=== PATIENT | male | born 1990 | race Caucasian/White ===

== ENCOUNTER 2018-12-12 13:39 | Inpatient (IN) | payer MEDICAID ==
[~2018-12-12] VITALS: Ht 167.6 cm; Wt 63.7 kg
[~2018-12-12 13:39] MED LIST: METH750T93 PO; NAPR-688 PO
[2018-12-12] MEDS ORDERED: SODIUM CHLORIDE 0.9% 1L BAG IV* STA (15:25)
[2018-12-12] MEDS ORDERED: CLINDAMYCIN 600 MG/D5W (PMX) 50 ML IVPB STA (15:25)
[2018-12-12] MEDS ORDERED: LIDOCAINE 1%/EPI (MDV) 50 ML INJ INJ ONE (15:30)
[2018-12-12] MEDS ORDERED: ACETAMINOPHEN 500 MG TAB PO STA (15:48)
[2018-12-12] MEDS ORDERED: KETOROLAC 30 MG INJ IV STA (16:03)
[2018-12-12] MEDS ORDERED: ONDANSETRON 4 MG INJ IV STA (16:03)
[2018-12-12] MEDS ORDERED: morphine 2 MG INJ IV STA (16:03)
--- NOTE | 2018-12-12 16:29 | ERD ---
ER Documentation Chief Complaint Chief Complaint RIGHT AC SWELLING WITH LARGE LUMP, POSS ABCESS, IV DRUG HPI 28-year-old male who is homeless and an IV drug abuser presents to the ED with abscess and swelling with erythema to his right arm that he is noted for the past 3-4 days. Patient admits to having chills. Admits to crystal meth use today. Patient denies taking any other medications. ROS All systems reviewed and are negative except as per history of present illness. Medications Home Meds Active Scripts Methocarbamol* (Robaxin*) 750 Mg Tablet, 750 MG PO Q6H PRN for MUSCLE SPASMS, #20 TAB Prov:AMANDO MÉNDEZ DO 07/12/18 Naproxen* (Naproxen*) 500 Mg Tablet, 500 MG PO BID PRN for PAIN, #20 TAB Prov:GWENDOLYN MÉNDEZSHUA DO 07/12/18 Allergies Allergies: Coded Allergies: No Known Drug Allergy (Verified Allergy, Unknown, 01/01/09) PMhx/Soc History of Surgery: No Anesthesia Reaction: No Hx Neurological Disorder: No Hx Respiratory Disorders: Yes (ASTHMA) Hx Cardiac Disorders: No Hx Psychiatric Problems: No Hx Miscellaneous Medical Probl: No Hx Alcohol Use: Yes Hx Substance Use: Yes (Meth) Hx Tobacco Use: Yes Physical Exam Vitals Vital Signs Date Temp Pulse Resp B/P (MAP) Pulse Ox O2 O2 Flow FiO2 Time Delivery Rate 12/12/18 100.0 114 20 129/74 100 14:42 (92) Physical Exam Const: No acute distress Head: Atraumatic Eyes: Normal Conjunctiva ENT: Normal External Ears, Nose and Mouth. Neck: Full range of motion. No meningismus. Resp: Clear to auscultation bilaterally Cardio: Regular rate and rhythm, no murmurs Abd: Soft, non tender, non distended. Normal bowel sounds Skin: Abscess noted to the right forearm with extensive cellulitis extending to the right hand and upper arm Back: No midline or flank tenderness Ext: No cyanosis, or edema Neur: Awake and alert Psych: Normal Mood and Affect Result Diagram: 12/12/18 1550 12/12/18 1550 Results 24 hrs Laboratory Tests Test 12/12/18 15:50 12/12/18 15:59 White Blood Count 18.9 10^3/ul Red Blood Count 5.31 10^6/ul Hemoglobin 13.5 g/dl Hematocrit 42.7 % Mean Corpuscular Volume 80.4 fl Mean Corpuscular Hemoglobin 25.4 pg Mean Corpuscular Hemoglobin Concent 31.6 g/dl Red Cell Distribution Width 15.0 % Platelet Count 494 10^3/UL Mean Platelet Volume 8.5 fl Immature Granulocytes % 0.800 % Neutrophils % 76.0 % Lymphocytes % 15.3 % Monocytes % 6.5 % Eosinophils % 1.0 % Basophils % 0.4 % Nucleated Red Blood Cells % 0.0 /100WBC Immature Granulocytes # 0.160 10^3/ul Neutrophils # 14.4 10^3/ul Lymphocytes # 2.9 10^3/ul Monocytes # 1.2 10^3/ul Eosinophils # 0.2 10^3/ul Basophils # 0.1 10^3/ul Nucleated Red Blood Cells # 0.0 10^3/ul Prothrombin Time 12.5 Sec Prothrombin Time Ratio 1.0 INR International Normalized Ratio 0.92 Activated Partial Thromboplast Time 32.3 Sec Sodium Level 138 mmol/L Potassium Level 3.8 mmol/L Chloride Level 97 mmol/L Carbon Dioxide Level 32 mmol/L Anion Gap 9 Blood Urea Nitrogen 10 mg/dl Creatinine 0.65 mg/dl Est Glomerular Filtrat Rate mL/min > 60 mL/min Glucose Level 123 mg/dl Calcium Level 9.3 mg/dl Total Bilirubin 0.1 mg/dl Direct Bilirubin 0.00 mg/dl Indirect Bilirubin 0.1 mg/dl Aspartate Amino Transf (AST/SGOT) 357 IU/L Alanine Aminotransferase (ALT/SGPT) 748 IU/L Alkaline Phosphatase 239 IU/L Total Protein 8.1 g/dl Albumin 4.1 g/dl Globulin 4.00 g/dl Albumin/Globulin Ratio 1.02 POC Venous Lactate 1.9 mmol/L Current Medications Medications Dose Sig/Chio Start Time Status Last (Trade) Ordered Route PRN Stop Time Admin Dose Reason Admin Sodium 1,890 ml BOLUS OVER 2 12/12/18 DC 12/12/18 Chloride HOURS STAT 15:25 16:25 (NS) IV* 12/12/18 15:30 Clindamycin 50 ml @ 50 ONCE STAT 12/12/18 DC 12/12/18 HCl/ mls/hr IVPB 15:25 16:23 Dextrose 12/12/18 16:24 Lidocaine/ 50 ml ONCE ONCE 12/12/18 DC Epinephrine INJ 15:30 (Xylocaine 12/12/18 15:31 1%/ Epi (Mdv)) 1,000 mg ONCE STAT 12/12/18 DC 12/12/18 Acetaminophen PO 15:48 16:24 (Tylenol 12/12/18 15:49 Tab) Ketorolac 30 mg ONCE STAT 12/12/18 DC 12/12/18 Tromethamine IV 16:03 16:23 (Toradol) 12/12/18 16:05 Morphine 2 mg ONCE STAT 12/12/18 DC 12/12/18 Sulfate IV 16:03 16:24 (morphine) 12/12/18 16:05 Ondansetron 4 mg ONCE STAT 12/12/18 DC 12/12/18 HCl (Zofran IV 16:03 16:23 Inj) 12/12/18 16:05 Lidocaine/ 1 ml ONCE INJ 12/12/18 DC Epinephrine 16:30 (Xylocaine 12/12/18 16:31 1%/ Epi (Pf)) Procedures/MDM 28-year-old male who is homeless presents to the ED with abscess and cellulitis of the right arm due to IV drug abuse. It is appropriate for patient to be admitted for IV antibiotics. Patient is afebrile and aseptic, stable to be tra nsferred to med/surg. I have discussed this case with my supervising physician who admitted to I&D performed, procedure below. IV access was established, patient was given about 2 L of normal saline fluids. Blood cultures obtained, he was started on clindamycin. Lab work was drawn, he had leukocytosis 18.9 and elevated transaminases ALT/AST 357/748. He will be admitted for further evaluation and management. PROCEDURE NOTE: Verbal consent was obtained Wound was cleansed with Betadine 20 cc Lidocaine 1% with epinephrine was used as a local anesthetic #11 blade scalpel was used for a single 0.5cm incision. Copious drainage of purulence occurred Wound packed with iodoform gauze strips Procedure tolerated without complications Wound dressed Departure Diagnosis: Primary Impression: Cellulitis Additional Impressions: Abscess Elevated transaminase level IV drug abuse Condition: Serious SHELLEY DUARTE PA-C Dec 12, 2018 16:29
[2018-12-12] MEDS ORDERED: LIDOCAINE 1%/EPI 30 ML INJ INJ SCH (16:30)
--- NOTE | 2018-12-12 17:43 | EN ---
Date/Time of Note Date/Time of Note DATE: 12/12/18 TIME: 17:38 ER Progress Note The patient was evaluated by the PA. He was seen and examine by me independently. Left upper extremity is with eryth ematous/edematous/fluctuant area The patient is 28-year-old male, presenting with acute right upper extremity pain and swelling and redness for the last 5 days after using IV drug, consistent with acute cellulitis/abscess He will be admitted for internal medicine antibiotic I discussed the findings with the patient. I discussed the patient with the hospitalist Dr Nevarez at 5:30 pm . who was made aware of the lab, the treatment, the patient condition. The patient is admitted to [facility] Disclaimer: Inadvertent spelling and grammatical errors are likely due to EHR/dictation software use and do not reflect on the overall quality of patient care. Also, please note that the electronic time recorded on this note does not necessarily reflect the actual time of the patient encounter. LENORE WEAVER MD Dec 12, 2018 17:43
--- NOTE | 2018-12-12 18:43 | HP ---
Date/Time of Note Date/Time of Note DATE: 12/12/18 TIME: 18:39 Assessment/Plan VTE Prophylaxis SCD contraindicated: low risk/ambulating Pharmacological prophylaxis: LMWH Lines/Catheters IV Catheter Type (from Nrsg): Saline Lock Assessment/Plan Hospital Course CC -rt arm pain [place] -28-year-old homeless gentleman, presently a poor historian. denies injury. awake, alert, oriented. 'tired, going through things... just want to sleep. lost the person who raised me last week here w ovarian ca.' homeless, lives in a tent. PMH -none PSH -none SH denies FH no known cad, stroke. cancer? ROS neuro: No loss of speech or vision or fainting cor cor: No chest pain no dyspnea no edema chest: Cough no dyspnea no fever abd: No pain nausea vomiting gu: No hematuria dysuria or lithiasis ms: No gait dysfunction falls. Positive rash infection right upper extremity: endo: No history of diabetes dyslipidemia or thyroid dysfunction psy: No significant agitation anxiety depression. Grief? hem: No hematemesis melena hematuria con: No fever rigors possible chills PE no pallor/ droop reg s1s2 no mrg ctab bs+ nt nd; no r r g no edema; rue- erythema, tender, warmth A/P 1- RUE Cellulitis, stable, continue Vanco Bactrim on discharge 2- Ftt; homeless: May need sniff 3- abn lfts 4possible hepatitis C Result Diagram: 12/12/18 1550 12/12/18 1550 Results 24hrs Laboratory Tests Test 12/12/18 15:50 12/12/18 15:59 White Blood Count 18.9 H Red Blood Count 5.31 Hemoglobin 13.5 L Hematocrit 42.7 Mean Corpuscular Volume 80.4 L Mean Corpuscular Hemoglobin 25.4 L Mean Corpuscular Hemoglobin Concent 31.6 L Red Cell Distribution Width 15.0 H Platelet Count 494 H Mean Platelet Volume 8.5 Immature Granulocytes % 0.800 H Neutrophils % 76.0 Lymphocytes % 15.3 Monocytes % 6.5 Eosinophils % 1.0 Basophils % 0.4 Nucleated Red Blood Cells % 0.0 Immature Granulocytes # 0.160 H Neutrophils # 14.4 H Lymphocytes # 2.9 Monocytes # 1.2 H Eosinophils # 0.2 Basophils # 0.1 Nucleated Red Blood Cells # 0.0 Prothrombin Time 12.5 Prothrombin Time Ratio 1.0 INR International Normalized Ratio 0.92 Activated Partial Thromboplast Time 32.3 Sodium Level 138 Potassium Level 3.8 Chloride Level 97 Carbon Dioxide Level 32 H Anion Gap 9 Blood Urea Nitrogen 10 Creatinine 0.65 Est Glomerular Filtrat Rate mL/min > 60 Glucose Level 123 Calcium Level 9.3 Total Bilirubin 0.1 L Direct Bilirubin 0.00 Indirect Bilirubin 0.1 Aspartate Amino Transf (AST/SGOT) 357 H Alanine Aminotransferase (ALT/SGPT) 748 H Alkaline Phosphatase 239 H Total Protein 8.1 Albumin 4.1 Globulin 4.00 H Albumin/Globulin Ratio 1.02 POC Venous Lactate 1.9 HPI/ROS Admit Date/Time Admit Date/Time PMH/Family/Social Past Medical History Medications Current Medications Sodium Chloride 1,000 ml @ 100 mls/hr Q10H IV ; Start 12/12/18 at 18:35; Status UNV IV Flush (NS 3 ml) 3 ml PER PROTOCOL IV ; Start 12/12/18 at 19:00; Status UNV Ondansetron HCl (Zofran Inj) 4 mg Q6H PRN IV NAUSEA/VOMITING; Start 12/12/18 at 19:00; Status UNV Acetaminophen (Tylenol Tab) 650 mg Q6H PRN PO .PAIN 1-3 OR TEMP; Start 12/12/18 at 19:00; Status UNV Oxycodone/ Acetaminophen (Percocet (5/ 325)) 1 tab Q6H PRN PO .MOD PAIN 4-6; Start 12/12/18 at 19:00; Status UNV Morphine Sulfate (morphine) 2 mg Q4H PRN IV .SEVERE PAIN 7-10; Start 12/12/18 at 19:00; Status UNV Docusate Sodium (Colace) 100 mg Q12H PRN PO .CONSTIPATION; Start 12/12/18 at 19:00; Status UNV Magnesium Hydroxide (Milk Of Mag) 30 ml DAILY PRN PO .CONSTIPATION; Start 12/12/18 at 19:00; Status UNV Bisacodyl (Dulcolax) 5 mg DAILY PRN PO .CONSTIPATION; Start 12/12/18 at 19:00; Status UNV Zolpidem Tartrate (Ambien) 5 mg QHS PRN PO .INSOMNIA; Start 12/12/18 at 19:00; Status UNV Famotidine (Pepcid) 20 mg Q12 PO ; Start 12/12/18 at 21:00; Status UNV Enoxaparin Sodium (Lovenox) 40 mg DAILY SC ; Start 12/13/18 at 09:00; Status UNV Coded Allergies: No Known Drug Allergy (Verified Allergy, Unknown, 12/12/18) Social History Smoking Status: Current every day smoker Exam/Review of Systems Vital Signs Vitals Vital Signs Date Temp Pulse Resp B/P (MAP) Pulse Ox O2 O2 Flow FiO2 Time Delivery Rate 12/12/18 100.0 114 20 129/74 100 14:42 (92) MINA CLAY MD Dec 12, 2018 18:43
[2018-12-12] MEDS ORDERED: NACL 0.9% 3 ML SYG IV SCH (19:00)
[2018-12-12] MEDS ORDERED: BISACODYL (EC) 5 MG TAB PO PRN (19:00)
[2018-12-12] MEDS ORDERED: MAGNESIUM HYDROXIDE 30ML CUP PO PRN (19:00)
[2018-12-12] MEDS ORDERED: morphine 2 MG INJ IV PRN (19:00)
[2018-12-12] MEDS ORDERED: ONDANSETRON 4 MG INJ IV PRN (19:00)
[2018-12-12] MEDS ORDERED: DOCUSATE SODIUM 100 MG CAP PO PRN (19:00)
[2018-12-12] MEDS ORDERED: ACETAMINOPHEN 325 MG TAB PO PRN (19:00)
[2018-12-12 21:32] VITALS: BP 111/53; PULSE 96; RESP 20
[2018-12-12 21:33] VITALS: Ht 167.6 cm; Wt 63.7 kg
[2018-12-12] MEDS ORDERED: CLINDAMYCIN 900 MG/D5W (PMX) 50 ML IVPB SCH (22:00)
[2018-12-12] MEDS: FAMOTIDINE 20 MG TAB PO SCH (22:36)
[2018-12-12] MEDS: SOD CHLORIDE 0.9% 1,000 ML IV SCH (22:36)
[2018-12-13 02:06] VITALS: BP 92/51; PULSE 92; RESP 18
[2018-12-13] MEDS: SOD CHLORIDE 0.9% 1,000 ML IV SCH ×2 (04:35→10:10)
[2018-12-13 07:20] VITALS: BP 109/57; PULSE 6; RESP 18
[2018-12-13] MEDS: FAMOTIDINE 20 MG TAB PO SCH ×2 (08:20→20:35)
[2018-12-13] MEDS: ENOXAPARIN 40 MG/0.4 ML SYG SC SCH (08:21)
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
[2018-12-13 14:08] VITALS: BP 121/55; PULSE 74; RESP 18
[2018-12-13] MEDS: BUPROPION 100 MG TAB PO SCH (14:38)
[2018-12-13] MEDS: CLINDAMYCIN 900 MG/D5W (PMX) 50 ML IVPB SCH ×2 (18:48→23:05)
[2018-12-13 20:00] VITALS: BP 131/53; PULSE 95; RESP 18
[2018-12-13] MEDS: LACTOBACILLUS RHAMNOSUS CAP PO SCH (20:35)
[2018-12-14 02:10] VITALS: BP 125/57; PULSE 77; RESP 18
[2018-12-14] MEDS: CLINDAMYCIN 900 MG/D5W (PMX) 50 ML IVPB SCH ×3 (05:33→21:48)
[2018-12-14] MEDS: SOD CHLORIDE 0.9% 1,000 ML IV SCH (06:40)
[2018-12-14 07:56] VITALS: BP 105/66; PULSE 65; RESP 18
[2018-12-14] MEDS: BUPROPION 100 MG TAB PO SCH (08:23)
[2018-12-14] MEDS: LACTOBACILLUS RHAMNOSUS CAP PO SCH ×2 (08:23→21:48)
[2018-12-14] MEDS: FAMOTIDINE 20 MG TAB PO SCH ×2 (08:23→21:48)
[2018-12-14] MEDS: ENOXAPARIN 40 MG/0.4 ML SYG SC SCH (08:24)
[2018-12-14 14:00] VITALS: BP 107/54; PULSE 73; RESP 16
--- NOTE | 2018-12-14 14:20 | CONS ---
DATE OF ADMISSION: 12/12/2018 DATE OF CONSULTATION: 12/13/2018 TYPE OF CONSULTATION: Infectious disease. REASON FOR CONSULTATION: Antibiotic management. HISTORY OF PRESENT ILLNESS: Nikhil Quinones is a 28-year-old male who presented to the [facility] on 12/12/2018 with possible IV drug abuse and possible abscess. The patient is homeless, IV drug a buser, presents to the ER with abscess and swelling with erythema of the right arm that he noted for the past 3 or 4 days. He had chills. He admits to using crystal meth even today, the day of admissi on. PAST MEDICAL HISTORY: Positive for asthma. FAMILY HISTORY: Noncontributory. SOCIAL HISTORY: He drinks, he smokes, he abuses drugs, especially methamphetamines. ANCILLARY LABORATORY DATA: On admission, his temperature was 100. White count 18.9, H and H of 13.5 and 42.7, platelet count 495,000. BUN and creatinine 10/0.65. He had noted white count of 18.9 wit h 76% neutrophils, 15% lymphocytes. The patient was started on clindamycin. Patient was admitted to Dr. Nevarez and I and D was performe d. The wound was cleaned, copious drainage of purulence occurred, wound packed. Procedure tolerated without complications. Blood cultures so far are negative. Wound culture was not done. Patient cu rrently on clindamycin. ALLERGIES: None to penicillin, sulfa or foods. MEDICATIONS: Per chart. REVIEW OF SYSTEMS: As per HPI. PHYSICAL EXAMINATION GENERAL: The patient is in no acute distress. VITAL SIGNS: T-max 100. SKIN: Without generalized rash. HEENT: Within normal limits. NECK: Supple. LYMPH NODES: None palpable. CHEST: Decreased breath sounds at the bases. HEART: Without murmur or gallop. ABDOMEN: Soft, nontender, without organosplenomegaly or masses. EXTREMITIES: Patient has his right forearm wrapped, status post incision and drainage. RECTAL AND GENITAL: Deferred. NEUROLOGIC: No focal neurological abnormality. IMPRESSION AND PLAN: The patient is an IV drug abuser. He had an abscess which was drained. It wou ld be nice to know what he is growing, but it is probably Staph aureus, methicillin-resistant staph. He was started on clindamycin and has no known drug allergy, so he could have been started on vancom ycin as well. We do not have any cultures at this point. Patient was seen by psychiatry or at least consented to tele medicine, for depression, anxiety. We will continue to observe him. I will dicta te my findings to Dr. Tapia. Dictated By: CLARA VIRGEN MD, JD/NTS Conf#: [id number] DID#: [id number] CC: ABHIJEET NEVAREZ MD;*EndCC*
--- NOTE | 2018-12-14 15:34 | PN ---
Date/Time of Note Date/Time of Note DATE: 12/14/18 TIME: 15:33 Assessment/Plan VTE Prophylaxis Risk score (from Ns)>0 risk: 1 SCD applied (from Ns): No SCD contraindicated: low risk/ambulating Pharmacological prophylaxis: LMWH Lines/Catheters IV Catheter Type (from Nrs): Saline Lock Urinary Cath still in place: No Assessment/Plan Hospital Course A/P 1- RUE Cellulitis, stable, cont Clinda; consider Bactrim on discharge. ortho eval too 2- Ftt; homeless: May need snf 3- abn lfts 4possible hepatitis C 5- blind S: no distress O: vss PE no pallor/ droop reg s1s2 no mrg ctab bs+ nt nd; no r r g no edema; rue- erythema, tender, warmth Result Diagram: 12/14/1842812/14/18428 Results 24hrs Laboratory Tests Test 12/13/18 23:15 12/14/18 04:29 Urine Opiates Screen Negative Urine Barbiturates Negative Urine Amphetamines Screen Positive Urine Benzodiazepines Screen Negative Urine Cocaine Screen Negative Urine Cannabinoids Negative White Blood Count 9.0 # Red Blood Count 4.73 Hemoglobin 12.3 L Hematocrit 38.3 L Mean Corpuscular Volume 81.0 L Mean Corpuscular Hemoglobin 26.0 L Mean Corpuscular Hemoglobin Concent 32.1 Red Cell Distribution Width 15.3 H Platelet Count 494 H Mean Platelet Volume 8.8 Immature Granulocytes % 1.000 H Neutrophils % 50.4 Lymphocytes % 33.0 Monocytes % 10.6 Eosinophils % 4.0 Basophils % 1.0 Nucleated Red Blood Cells % 0.0 Immature Granulocytes # 0.090 H Neutrophils # 4.5 Lymphocytes # 3.0 H Monocytes # 1.0 H Eosinophils # 0.4 Basophils # 0.1 Nucleated Red Blood Cells # 0.0 Sodium Level 140 Potassium Level 4.0 Chloride Level 106 Carbon Dioxide Level 29 Anion Gap 5 Blood Urea Nitrogen 13 Creatinine 0.71 Est Glomerular Filtrat Rate mL/min > 60 Glucose Level 98 Calcium Level 8.8 Exam/Review of Systems Exam Vitals Vital Signs Date Temp Pulse Resp B/P (MAP) Pulse Ox O2 O2 Flow FiO2 Time Delivery Rate 12/14/18 98.5 73 16 107/54 99 14:00 (71) 12/13/18 Room Air 14:08 Intake and Output 12/13/18 12/13/18 12/14/18 1414:59 22:59 06:59 IntakeIntake Total 850 ml 470 ml 1418 ml OutputOutput Total 320 ml BalanceBalance 850 ml 470 ml 1098 ml Results Results 24hrs Laboratory Tests Test 12/13/18 23:15 12/14/18 04:29 Urine Opiates Screen Negative Urine Barbiturates Negative Urine Amphetamines Screen Positive Urine Benzodiazepines Screen Negative Urine Cocaine Screen Negative Urine Cannabinoids Negative White Blood Count 9.0 # Red Blood Count 4.73 Hemoglobin 12.3 L Hematocrit 38.3 L Mean Corpuscular Volume 81.0 L Mean Corpuscular Hemoglobin 26.0 L Mean Corpuscular Hemoglobin Concent 32.1 Red Cell Distribution Width 15.3 H Platelet Count 494 H Mean Platelet Volume 8.8 Immature Granulocytes % 1.000 H Neutrophils % 50.4 Lymphocytes % 33.0 Monocytes % 10.6 Eosinophils % 4.0 Basophils % 1.0 Nucleated Red Blood Cells % 0.0 Immature Granulocytes # 0.090 H Neutrophils # 4.5 Lymphocytes # 3.0 H Monocytes # 1.0 H Eosinophils # 0.4 Basophils # 0.1 Nucleated Red Blood Cells # 0.0 Sodium Level 140 Potassium Level 4.0 Chloride Level 106 Carbon Dioxide Level 29 Anion Gap 5 Blood Urea Nitrogen 13 Creatinine 0.71 Est Glomerular Filtrat Rate mL/min > 60 Glucose Level 98 Calcium Level 8.8 Medications Medication Current Medications Sodium Chloride 1,000 ml @ 50 mls/hr Q20H IV Last administered on 12/14/18at 06:40; Admin Dose 50 MLS/HR; Start 12/12/18 at 18:35 IV Flush (NS 3 ml) 3 ml PER PROTOCOL IV ; Start 12/12/18 at 19:00 Ondansetron HCl (Zofran Inj) 4 mg Q6H PRN IV NAUSEA/VOMITING; Start 12/12/18 at 19:00 Acetaminophen (Tylenol Tab) 650 mg Q6H PRN PO .PAIN 1-3 OR TEMP; Start 12/12/18 at 19:00 Oxycodone/ Acetaminophen (Percocet (5/ 325)) 1 tab Q6H PRN PO .MOD PAIN 4-6; Start 12/12/18 at 19:00 Morphine Sulfate (morphine) 2 mg Q4H PRN IV .SEVERE PAIN 7-10; Start 12/12/18 at 19:00 Docusate Sodium (Colace) 100 mg Q12H PRN PO .CONSTIPATION; Start 12/12/18 at 19:00 Magnesium Hydroxide (Milk Of Mag) 30 ml DAILY PRN PO .CONSTIPATION; Start 12/12/18 at 19:00 Bisacodyl (Dulcolax) 5 mg DAILY PRN PO .CONSTIPATION; Start 12/12/18 at 19:00 Zolpidem Tartrate (Ambien) 5 mg QHS PRN PO .INSOMNIA; Start 12/12/18 at 19:00 Famotidine (Pepcid) 20 mg Q12 PO Last administered on 12/14/18 08:23; Admin Dose 20 MG; Start 12/12/18 at 21:00 Enoxaparin Sodium (Lovenox) 40 mg DAILY SC Last administered on 12/14/18 08:24; Admin Dose 40 MG; Start 12/13/18 at 09:00 Lorazepam (Ativan) 1 mg Q8H PRN PO AGITATION/ANXIETY; Start 12/12/18 at 19:00 Bupropion HCl (Wellbutrin) 100 mg DAILY PO Last administered on 12/14/18 08:23 ; Admin Dose 100 MG; Start 12/13/18 at 11:30 Clindamycin HCl/ Dextrose 50 ml @ 50 mls/hr Q8 IVPB Last administered on 12/14/18 13:39; Admin Dose 50 MLS/HR; Start 12/13/18 at 18:30 Lactobacillus Acidophilus/ Rhamnosus (Culturelle) 1 cap BID PO Last administered on 12/14/18at 08:23; Admin Dose 1 CAP; Start 12/13/18 at 21:00 MINA CLAY MD Dec 14, 2018 15:34
[2018-12-15] MEDS: CLINDAMYCIN 900 MG/D5W (PMX) 50 ML IVPB SCH ×3 (05:27→21:11)
[2018-12-15 08:00] VITALS: BP 121/56; PULSE 66; RESP 18
[2018-12-15] MEDS: LACTOBACILLUS RHAMNOSUS CAP PO SCH ×2 (09:07→21:10)
[2018-12-15] MEDS: FAMOTIDINE 20 MG TAB PO SCH ×2 (09:07→21:10)
[2018-12-15] MEDS: BUPROPION 100 MG TAB PO SCH (09:07)
[2018-12-15] MEDS: ENOXAPARIN 40 MG/0.4 ML SYG SC SCH (09:08)
[2018-12-15] MEDS: LORAZEPAM 1 MG TAB PO PRN (12:34)
[2018-12-15 14:00] VITALS: BP 92/49; PULSE 70; RESP 18
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
[2018-12-15] MEDS: OXYCODONE/ACETAMINOPHEN (5/325) TAB PO PRN (15:19)
[2018-12-15 20:00] VITALS: BP 112/57; PULSE 76; RESP 18
[2018-12-15] MEDS: MUPIROCIN 2% 22 GM OINT TOP SCH (21:11)
--- NOTE | 2018-12-15 21:18 | PN ---
Date/Time of Note Date/Time of Note DATE: 12/15/18 TIME: 21:17 Assessment/Plan VTE Prophylaxis Risk score (from Nsg)>0 risk: 1 SCD applied (from Nsg): No SCD contraindicated: low risk/ambulating Pharmacological prophylaxis: LMWH Lines/Catheters IV Catheter Type (from Nrsg): Saline Lock Urinary Cath still in place: No Assessment/Plan Hospital Course A/P 1- RUE Cellulitis, stable, cont Clinda; consider Bactrim on discharge. ortho eval too 2- Ftt; homeless: May need snf 3- abn lfts 4possible hepatitis C 5- blind S: 12/14 no distress 12/15- no fever. wound appears still infected O: vss PE no pallor/ droop reg s1s2 no mrg ctab bs+ nt nd; no r r g no edema; rue- erythema, tender, warmth Result Diagram: 12/14/1842812/14/18428 Exam/Review of Systems Exam Vitals Vital Signs Date Temp Pulse Resp B/P (MAP) Pulse Ox O2 O2 Flow FiO2 Time Delivery Rate 12/15/18 98.7 76 18 112/57 100 20:00 (75) 12/15/18 Room Air 14:00 Intake and Output 12/14/18 12/14/18 12/15/18 1515:00 23:00 07:00 IntakeIntake Total 170 ml 450 ml 100 ml BalanceBalance 170 ml 450 ml 100 ml Medications Medication Current Medications IV Flush (NS 3 ml) 3 ml PER PROTOCOL IV ; Start 12/12/18 at 19:00 Ondansetron HCl (Zofran Inj) 4 mg Q6H PRN IV NAUSEA/VOMITING; Start 12/12/18 at 19:00 Acetaminophen (Tylenol Tab) 650 mg Q6H PRN PO .PAIN 1-3 OR TEMP; Start 12/12/18 at 19:00 Oxycodone/ Acetaminophen (Percocet (5/ 325)) 1 tab Q6H PRN PO .MOD PAIN 4-6 Last administered on 12/15/18at 15:19; Admin Dose 1 TAB; Start 12/12/18 at 19:00 Morphine Sulfate (morphine) 2 mg Q4H PRN IV .SEVERE PAIN 7-10; Start 12/12/18 at 19:00 Docusate Sodium (Colace) 100 mg Q12H PRN PO .CONSTIPATION; Start 12/12/18 at 19:00 Magnesium Hydroxide (Milk Of Mag) 30 ml DAILY PRN PO .CONSTIPATION; Start 12/12/18 at 19:00 Bisacodyl (Dulcolax) 5 mg DAILY PRN PO .CONSTIPATION; Start 12/12/18 at 19:00 Zolpidem Tartrate (Ambien) 5 mg QHS PRN PO .INSOMNIA; Start 12/12/18 at 19:00 Famotidine (Pepcid) 20 mg Q12 PO Last administered on 12/15/18 21:10; Admin Dose 20 MG; Start 12/12/18 at 21:00 Enoxaparin Sodium (Lovenox) 40 mg DAILY SC Last administered on 12/15/18 09:08; Admin Dose 40 MG; Start 12/13/18 at 09:00 Lorazepam (Ativan) 1 mg Q8H PRN PO AGITATION/ANXIETY Last administered on 12/15/18 12:34; Admin Dose 1 MG; Start 12/12/18 at 19:00 Bupropion HCl (Wellbutrin) 100 mg DAILY PO Last administered on 12/15/18 09:07; Admin Dose 100 MG; Start 12/13/18 at 11:30 Clindamycin HCl/ Dextrose 50 ml @ 50 mls/hr Q8 IVPB Last administered on 12/15/18 21:11; Admin Dose 50 MLS/HR; Start 12/13/18 at 18:30 Lactobacillus Acidophilus/ Rhamnosus (Culturelle) 1 cap BID PO Last administered on 12/15/18 21:10; Admin Dose 1 CAP; Start 12/13/18 at 21:00 Mupirocin (Bactroban) 1 applic BID TOP Last administered on 12/15/18 21:11; Admin Dose 1 APPLIC; Start 12/15/18 at 21:00 MINA CLAY MD Dec 15, 2018 21:18
[2018-12-16 02:08] VITALS: BP 119/61; PULSE 83; RESP 18
[2018-12-16] MEDS: CLINDAMYCIN 900 MG/D5W (PMX) 50 ML IVPB SCH ×3 (05:30→21:19)
[2018-12-16] MEDS: LORAZEPAM 1 MG TAB PO PRN ×2 (06:46→16:24)
[2018-12-16 08:10] VITALS: BP 102/58; PULSE 69; RESP 18
[2018-12-16] MEDS: MUPIROCIN 2% 22 GM OINT TOP SCH ×2 (08:55→20:39)
[2018-12-16] MEDS: FAMOTIDINE 20 MG TAB PO SCH ×2 (08:55→20:39)
[2018-12-16] MEDS: BUPROPION 100 MG TAB PO SCH (08:55)
[2018-12-16] MEDS: LACTOBACILLUS RHAMNOSUS CAP PO SCH ×2 (08:55→20:39)
[2018-12-16] MEDS: ENOXAPARIN 40 MG/0.4 ML SYG SC SCH (08:57)
[2018-12-16] MEDS: OXYCODONE/ACETAMINOPHEN (5/325) TAB PO PRN (12:48)
[2018-12-16 14:30] VITALS: BP 107/57; PULSE 81; RESP 28
--- NOTE | 2018-12-16 15:43 | PN ---
Date/Time of Note Date/Time of Note DATE: 12/16/18 TIME: 15:42 Assessment/Plan VTE Prophylaxis Risk score (from Nsg)>0 risk: 1 SCD applied (from Nsg): Yes SCD contraindicated: low risk/ambulating Pharmacological prophylaxis: LMWH Lines/Catheters IV Catheter Type (from Nrsg): Saline Lock Urinary Cath still in place: No Assessment/Plan Hospital Course A/P 1- RUE Cellulitis, stable, cont Clinda; consider po Bactrim on discharge. ortho eval -P 2- Ftt; homeless: May need snf 3- abn lfts 4possible hepatitis C 5- blind 6- Substance abuse: Methamphetamine 7- MRSA nares status 8- Grief S: 12/14 no distress 12/15- no fever. wound appears still infected 12/16: No events. No fever or diarrhea. O: vss PE no pallor/ droop reg s1s2 no mrg ctab bs+ nt nd; no r r g no edema; rue- erythema, tender, warmth Result Diagram: 12/14/189 12/14/189 Exam/Review of Systems Exam Vitals Vital Signs Date Temp Pulse Resp B/P (MAP) Pulse Ox O2 O2 Flow FiO2 Time Delivery Rate 12/16/18 98.4 81 28 107/57 98 14:30 (74) 12/15/18 Room Air 14:00 Intake and Output 12/15/18 12/15/18 12/16/18 1515:00 23:00 07:00 IntakeIntake Total 910 ml 380 ml 50 ml BalanceBalance 910 ml 380 ml 50 ml Medications Medication Current Medications IV Flush (NS 3 ml) 3 ml PER PROTOCOL IV ; Start 12/12/18 at 19:00 Ondansetron HCl (Zofran Inj) 4 mg Q6H PRN IV NAUSEA/VOMITING; Start 12/12/18 at 19:00 Acetaminophen (Tylenol Tab) 650 mg Q6H PRN PO .PAIN 1-3 OR TEMP; Start 12/12/18 at 19:00 Oxycodone/ Acetaminophen (Percocet (5/ 325)) 1 tab Q6H PRN PO .MOD PAIN 4-6 Last administered on 12/16/18at 12:48; Admin Dose 1 TAB; Start 12/12/18 at 19:00 Morphine Sulfate (morphine) 2 mg Q4H PRN IV .SEVERE PAIN 7-10; Start 12/12/18 at 19:00 Docusate Sodium (Colace) 100 mg Q12H PRN PO .CONSTIPATION; Start 12/12/18 at 19:00 Magnesium Hydroxide (Milk Of Mag) 30 ml DAILY PRN PO .CONSTIPATION; Start 12/12/18 at 19:00 Bisacodyl (Dulcolax) 5 mg DAILY PRN PO .CONSTIPATION; Start 12/12/18 at 19:00 Zolpidem Tartrate (Ambien) 5 mg QHS PRN PO .INSOMNIA; Start 12/12/18 at 19:00 Famotidine (Pepcid) 20 mg Q12 PO Last administered on 12/16/18 08:55; Admin Dose 20 MG; Start 12/12/18 at 21:00 Enoxaparin Sodium (Lovenox) 40 mg DAILY SC Last administered on 12/16/18 08:5 7; Admin Dose 40 MG; Start 12/13/18 at 09:00 Lorazepam (Ativan) 1 mg Q8H PRN PO AGITATION/ANXIETY Last administered on 12/16/18 06:46; Admin Dose 1 MG; Start 12/12/18 at 19:00 Bupropion HCl (Wellbutrin) 100 mg DAILY PO Last administered on 12/16/18 08:55; Admin Dose 100 MG; Start 12/13/18 at 11:30 Clindamycin HCl/ Dextrose 50 ml @ 50 mls/hr Q8 IVPB Last administered on 12/16/18 13:15; Admin Dose 50 MLS/HR; Start 12/13/18 at 18:30 Lactobacillus Acidophilus/ Rhamnosus (Culturelle) 1 cap BID PO Last administered on 12/16/18 08:55; Admin Dose 1 CAP; Start 12/13/18 at 21:00 Mupirocin (Bactroban) 1 applic BID TOP Last administered on 12/16/18 08:55; Admin Dose 1 APPLIC; Start 12/15/18 at 21:00 MINA CLAY MD Dec 16, 2018 15:43
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
[2018-12-16 20:07] VITALS: BP 120/59; PULSE 79
[2018-12-16] MEDS: ZOLPIDEM 5 MG TAB PO PRN (22:46)
[2018-12-17 02:32] VITALS: BP 119/62; PULSE 85; RESP 18
[2018-12-17] MEDS: CLINDAMYCIN 900 MG/D5W (PMX) 50 ML IVPB SCH ×3 (06:24→21:04)
[2018-12-17 08:00] VITALS: BP 109/53; PULSE 78; RESP 18
[2018-12-17] MEDS: BUPROPION 100 MG TAB PO SCH (08:02)
[2018-12-17] MEDS: OXYCODONE/ACETAMINOPHEN (5/325) TAB PO PRN ×2 (08:02→17:26)
[2018-12-17] MEDS: LACTOBACILLUS RHAMNOSUS CAP PO SCH ×2 (08:02→23:15)
[2018-12-17] MEDS: FAMOTIDINE 20 MG TAB PO SCH (08:02)
[2018-12-17] MEDS: MUPIROCIN 2% 22 GM OINT TOP SCH ×2 (08:03→21:05)
[2018-12-17] MEDS: ENOXAPARIN 40 MG/0.4 ML SYG SC SCH (08:04)
[2018-12-17] MEDS: NICOTINE (21 MG/24 HR) PATCH TRANSDERM SCH (10:00)
--- NOTE | 2018-12-17 11:25 | CONS ---
Assessment/Plan Assessment/Plan Assessment/Plan (Daily) Status post incision and drainage of left forearm abscess. Residual left forearm cellulitis seems to be responding to medical management. CT results are pending. Consultation Date/Type/Reason Admit Date/Time Dec 12, 2018 at 17:37 Date of Consultation: Dec 17, 2018 Type of Consult General surgery Reason for Consultation Abscess and cellulitis left forearm Date/Time of Note DATE: 12/17/18 TIME: 11:21 Hx of Present Illness The patient is a 28-year-old gentleman who was admitted 5 days ago with a left forearm abscess. He underwent incision and drainage in the emergency room, and has stabilized but still has residual cellulitis. A CT scan of his left upper extremity was done today but the results are not available. He has had no fevers or chills. Constitutional: no complaints Eyes: no complaints ENT: no complaints Respiratory: other (History of asthma) Cardiovascular: no complaints Gastrointestinal: no complaints Genitourinary: no complaints Musculoskeletal: no complaints Skin: no complaints, other (As in the HPI) Neurologic: no complaints Endocrine: no complaints Lymphatic: no complaints Psychological: no complaints Past Medical History Medical History: other (IV drug abuse) Home Meds Discontinued Scripts Methocarbamol* (Robaxin*) 750 Mg Tablet, 750 MG PO Q6H PRN for MUSCLE SPASMS, #20 TAB Prov:AMANDO MÉNDEZ DO 07/12/18 Naproxen* (Naproxen*) 500 Mg Tablet, 500 MG PO BID PRN for PAIN, #20 TAB Prov:AMANDO MÉNDEZ DO 07/12/18 Medications Current Medications IV Flush (NS 3 ml) 3 ml PER PROTOCOL IV ; Start 12/12/18 at 19:00 Ondansetron HCl (Zofran Inj) 4 mg Q6H PRN IV NAUSEA/VOMITING; Start 12/12/18 at 19:00 Acetaminophen (Tylenol Tab) 650 mg Q6H PRN PO .PAIN 1-3 OR TEMP; Start 12/12/18 at 19:00 Oxycodone/ Acetaminophen (Percocet (5/ 325)) 1 tab Q6H PRN PO .MOD PAIN 4-6 Last administered on 12/17/18at 08:02; Admin Dose 1 TAB; Start 12/12/18 at 19:00 Morphine Sulfate (morphine) 2 mg Q4H PRN IV .SEVERE PAIN 7-10; Start 12/12/18 at 19:00 Docusate Sodium (Colace) 100 mg Q12H PRN PO .CONSTIPATION; Start 12/12/18 at 19:00 Magnesium Hydroxide (Milk Of Mag) 30 ml DAILY PRN PO .CONSTIPATION; Start 12/12/18 at 19:00 Bisacodyl (Dulcolax) 5 mg DAILY PRN PO .CONSTIPATION; Start 12/12/18 at 19:00 Zolpidem Tartrate (Ambien) 5 mg QHS PRN PO .INSOMNIA Last administered on 12/16/18 22:46; Admin Dose 5 MG; Start 12/12/18 at 19:00 Enoxaparin Sodium (Lovenox) 40 mg DAILY SC Last administered on 12/17/18 08:04; Admin Dose 40 MG; Start 12/13/18 at 09:00 Lorazepam (Ativan) 1 mg Q8H PRN PO AGITATION/ANXIETY Last administered on 12/16/18 16:24; Admin Dose 1 MG; Start 12/12/18 at 19:00 Bupropion HCl (Wellbutrin) 100 mg DAILY PO Last administered on 12/17/18 08:02; Admin Dose 100 MG; Start 12/13/18 at 11:30 Clindamycin HCl/ Dextrose 50 ml @ 50 mls/hr Q8 IVPB Last administered on 12/17/18 06:24; Admin Dose 50 MLS/HR; Start 12/13/18 at 18:30 Lactobacillus Acidophilus/ Rhamnosus (Culturelle) 1 cap BID PO Last adminis tered on 12/17/18 08:02; Admin Dose 1 CAP; Start 12/13/18 at 21:00 Mupirocin (Bactroban) 1 applic BID TOP Last administered on 12/17/18 08:03; Admin Dose 1 APPLIC; Start 12/15/18 at 21:00 Famotidine (Pepcid) 20 mg DAILY PO ; Start 12/18/18 at 09:00 Nicotine (Nicoderm 21 Mg/ 24hr) 1 patch DAILY TRANSDERM ; Start 12/17/18 at 10:00 Allergies: Coded Allergies: No Known Drug Allergy (Verified Allergy, Unknown, 12/12/18) Past Surgical History Past Surgical Hx: no surgical history Family History Significant Family History: no pertinent family hx Social History Smoking Status: Current every day smoker Drug Use: cocaine, heroin Exam/Review of Systems Exam Vitals Vital Signs Date Temp Pulse Resp B/P (MAP) Pulse Ox O2 O2 Flow FiO2 Time Delivery Rate 12/17/18 97.9 78 18 109/53 98 08:00 (71) 12/15/18 Room Air 14:00 Intake and Output 12/16/18 12/16/18 12/17/18 1515:00 23:00 07:00 IntakeIntake Total 950 ml 650 ml BalanceBalance 950 ml 650 ml Constitutional: alert, oriented Psych: no complaints Head: normocephalic Eyes: nl conjunctiva ENMT: nl external ears & nose Neck: supple Respiratory: clear to auscultation Cardiovascular: regular rate and rhythm Gastrointestinal: soft Musculoskeletal: swelling (Left forearm) Extremities: other (Slight erythema left forearm no evidence of residual abscess) Neurological: BUSINESS INFORMATION ANALYST II-XII intact Skin: nl turgor Results Result Diagram: 12/17/18 0624 12/17/18 0624 Results 24hrs Laboratory Tests Test 12/17/18 06:24 White Blood Count 10.6 Red Blood Count 4.99 Hemoglobin 13.1 L Hematocrit 40.6 L Mean Corpuscular Volume 81.4 L Mean Corpuscular Hemoglobin 26.3 L Mean Corpuscular Hemoglobin Concent 32.3 Red Cell Distribution Width 15.2 H Platelet Count 577 H Mean Platelet Volume 8.1 Immature Granulocytes % 1.700 H Neutrophils % 51.1 Lymphocytes % 34.8 Monocytes % 7.6 Eosinophils % 3.6 Basophils % 1.2 Nucleated Red Blood Cells % 0.0 Immature Granulocytes # 0.180 H Neutrophils # 5.4 Lymphocytes # 3.7 H Monocytes # 0.8 Eosinophils # 0.4 Basophils # 0.1 Nucleated Red Blood Cells # 0.0 Prothrombin Time 12.2 Prothrombin Time Ratio 1.0 INR International Normalized Ratio 0.89 Sodium Level 140 Potassium Level 4.3 Chloride Level 103 Carbon Dioxide Level 32 H Anion Gap 5 Blood Urea Nitrogen 14 Creatinine 0.72 Est Glomerular Filtrat Rate mL/min > 60 Glucose Level 103 Calcium Level 9.4 Medications Medication Current Medications IV Flush (NS 3 ml) 3 ml PER PROTOCOL IV ; Start 12/12/18 at 19:00 Ondansetron HCl (Zofran Inj) 4 mg Q6H PRN IV NAUSEA/VOMITING; Start 12/12/18 at 19:00 Acetaminophen (Tylenol Tab) 650 mg Q6H PRN PO .PAIN 1-3 OR TEMP; Start 12/12/18 at 19:00 Oxycodone/ Acetaminophen (Percocet (5/ 325)) 1 tab Q6H PRN PO .MOD PAIN 4-6 Las t administered on 12/17/18 08:02; Admin Dose 1 TAB; Start 12/12/18 at 19:00 Morphine Sulfate (morphine) 2 mg Q4H PRN IV .SEVERE PAIN 7-10; Start 12/12/18 at 19:00 Docusate Sodium (Colace) 100 mg Q12H PRN PO .CONSTIPATION; Start 12/12/18 at 19:00 Magnesium Hydroxide (Milk Of Mag) 30 ml DAILY PRN PO .CONSTIPATION; Start 12/12/18 at 19:00 Bisacodyl (Dulcolax) 5 mg DAILY PRN PO .CONSTIPATION; Start 12/12/18 at 19:00 Zolpidem Tartrate (Ambien) 5 mg QHS PRN PO .INSOMNIA Last administered on 12/16 22:46; Admin Dose 5 MG; Start 12/12/18 at 19:00 Enoxaparin Sodium (Lovenox) 40 mg DAILY SC Last administered on 12/17/18 08:04; Admin Dose 40 MG; Start 12/13/18 at 09:00 Lorazepam (Ativan) 1 mg Q8H PRN PO AGITATION/ANXIETY Last administered on 12/16/18 16:24; Admin Dose 1 MG; Start 12/12/18 at 19:00 Bupropion HCl (Wellbutrin) 100 mg DAILY PO Last administered on 12/17/18 08:02; Admin Dose 100 MG; Start 12/13/18 at 11:30 Clindamycin HCl/ Dextrose 50 ml @ 50 mls/hr Q8 IVPB Last administered on 12/17/18 06:24; Admin Dose 50 MLS/HR; Start 12/13/18 at 18:30 Lactobacillus Acidophilus/ Rhamnosus (Culturelle) 1 cap BID PO Last administered on 12/17/18 08:02; Admin Dose 1 CAP; Start 12/13/18 at 21:00 Mupirocin (Bactroban) 1 applic BID TOP Last administered on 12/17/18at 08:03; Admin Dose 1 APPLIC; Start 12/15/18 at 21:00 Famotidine (Pepcid) 20 mg DAILY PO ; Start 12/18/18 at 09:00 Nicotine (Nicoderm 21 Mg/ 24hr) 1 patch DAILY TRANSDERM ; Start 12/17/18 at 10:00 JESE MOELLER MD Dec 17, 2018 11:25
[2018-12-17] MEDS: LORAZEPAM 1 MG TAB PO PRN (13:11)
[2018-12-17 14:00] VITALS: BP 125/63; PULSE 75; RESP 18
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
--- NOTE | 2018-12-17 17:32 | PN ---
Date/Time of Note Date/Time of Note DATE: 12/17/18 TIME: 17:30 Assessment/Plan VTE Prophylaxis Risk score (from Nsg)>0 risk: 1 SCD applied (from Nsg): Yes Pharmacological prophylaxis: LMWH Lines/Catheters IV Catheter Type (from Nrsg): Saline Lock Urinary Cath still in place: No Assessment/Plan Hospital Course SUBJECTIVE: Right upper extremity pain well controlled. OBJECTIVE: Physical Exam General: Adequately build 28 year-old male lying in bed in no apparent distress. HEENT: Normocephalic, atraumatic. Eyes: Anicteric sclerae, conjunctivae clear. ENT: Nasal septum midline, oral mucosa moist. Neck supple, no JVD noticed. Respiratory: Bilaterally clear breath sounds. No use of accessory muscles of respiration. No adventitious breath sounds. Cardiovascular: S1, S2 heard. Abdomen: Soft, nontender, and nondistended. Bowel sounds positive in all 4 quadrants. Genitourinary: Deferred. Extremities: No cyanosis, no clubbing. Right upper extremity edema with a dressing at the AC. Peripheral pulses palpable. Neurologic: Cranial nerves II through XII grossly intact. The patient is awake, alert, and oriented. Labs & Vitals per chart ASSESSMENT & PLAN 28-year-old male who is homeless with underlying IV drug abuse who came to the emergency room with complaint of swelling in the right upper extremity. The patient was noticed to have leukocytosis and febrile illness. The patient was admitted to inpatient setting for further treatment and evaluation. 1. Right upper extremity cellulitis secondary to IV drug abuse. -Right upper extremity CT scan showing no fluid collection or soft tissue gas and no CT evidence of osseous destructive changes -Being followed by surgery and ID. -Continue antimicrobials as per ID. 2. IV drug abuse. -Cessation advised. -manager workers compensation on the case. 3. Homelessness. -manager workers compensation following. 4. Transaminitis without hyperbilirubinemia. -HCV positive. -Needs eventual treatment. 5. MRSA of the nares. -Continue Bactroban. 6. Fluids, electrolytes, and nutrition. -Regular diet. -7. Major depressive disorder -Continue antidepressants. 8. DVT prophylaxis. -Subcutaneous Lovenox. 8. Plan. -Continue antimicrobials as per ID. -Await surgical recommendations. The patient was seen in collaboration with Dr. Teixeira. Result Diagram: 2/18/19 0624 2/18/19 0624 Results 24hrs Laboratory Tests Test 12/17/18 06:24 White Blood Count 10.6 Red Blood Count 4.99 Hemoglobin 13.1 L Hematocrit 40.6 L Mean Corpuscular Volume 81.4 L Mean Corpuscular Hemoglobin 26.3 L Mean Corpuscular Hemoglobin Concent 32.3 Red Cell Distribution Width 15.2 H Platelet Count 577 H Mean Platelet Volume 8.1 Immature Granulocytes % 1.700 H Neutrophils % 51.1 Lymphocytes % 34.8 Monocytes % 7.6 Eosinophils % 3.6 Basophils % 1.2 Nucleated Red Blood Cells % 0.0 Immature Granulocytes # 0.180 H Neutrophils # 5.4 Lymphocytes # 3.7 H Monocytes # 0.8 Eosinophils # 0.4 Basophils # 0.1 Nucleated Red Blood Cells # 0.0 Prothrombin Time 12.2 Prothrombin Time Ratio 1.0 INR International Normalized Ratio 0.89 Sodium Level 140 Potassium Level 4.3 Chloride Level 103 Carbon Dioxide Level 32 H Anion Gap 5 Blood Urea Nitrogen 14 Creatinine 0.72 Est Glomerular Filtrat Rate mL/min > 60 Glucose Level 103 Calcium Level 9.4 Exam/Review of Systems Exam Vitals Vital Signs Date Temp Pulse Resp B/P (MAP) Pulse Ox O2 O2 Flow FiO2 Time Delivery Rate 12/17/18 97.9 75 18 125/63 98 Room Air 14:00 (83) Intake and Output 12/16/18 12/16/18 12/17/18 1515:00 23:00 07:00 IntakeIntake Total 950 ml 650 ml BalanceBalance 950 ml 650 ml Results Results 24hrs Laboratory Tests Test 12/17/18 06:24 White Blood Count 10.6 Red Blood Count 4.99 Hemoglobin 13.1 L Hematocrit 40.6 L Mean Corpuscular Volume 81.4 L Mean Corpuscular Hemoglobin 26.3 L Mean Corpuscular Hemoglobin Concent 32.3 Red Cell Distribution Width 15.2 H Platelet Count 577 H Mean Platelet Volume 8.1 Immature Granulocytes % 1.700 H Neutrophils % 51.1 Lymphocytes % 34.8 Monocytes % 7.6 Eosinophils % 3.6 Basophils % 1.2 Nucleated Red Blood Cells % 0.0 Immature Granulocytes # 0.180 H Neutrophils # 5.4 Lymphocytes # 3.7 H Monocytes # 0.8 Eosinophils # 0.4 Basophils # 0.1 Nucleated Red Blood Cells # 0.0 Prothrombin Time 12.2 Prothrombin Time Ratio 1.0 INR International Normalized Ratio 0.89 Sodium Level 140 Potassium Level 4.3 Chloride Level 103 Carbon Dioxide Level 32 H Anion Gap 5 Blood Urea Nitrogen 14 Creatinine 0.72 Est Glomerular Filtrat Rate mL/min > 60 Glucose Level 103 Calcium Level 9.4 Medications Medication Current Medications IV Flush (NS 3 ml) 3 ml PER PROTOCOL IV ; Start 12/12/18 at 19:00 Ondansetron HCl (Zofran Inj) 4 mg Q6H PRN IV NAUSEA/VOMITING; Start 12/12/18 at 19:00 Acetaminophen (Tylenol Tab) 650 mg Q6H PRN PO .PAIN 1-3 OR TEMP; Start 12/12/18 at 19:00 Oxycodone/ Acetaminophen (Percocet (5/ 325)) 1 tab Q6H PRN PO .MOD PAIN 4-6 Last administered on 12/17/18 08:02; Admin Dose 1 TAB; Start 12/12/18 at 19:00 Morphine Sulfate (morphine) 2 mg Q4H PRN IV .SEVERE PAIN 7-10; Start 12/12/18 at 19:00 Docusate Sodium (Colace) 100 mg Q12H PRN PO .CONSTIPATION; Start 12/12/18 at 19:00 Magnesium Hydroxide (Milk Of Mag) 30 ml DAILY PRN PO .CONSTIPATION; Start 12/12/18 at 19:00 Bisacodyl (Dulcolax) 5 mg DAILY PRN PO .CONSTIPATION; Start 12/12/18 at 19:00 Zolpidem Tartrate (Ambien) 5 mg QHS PRN PO .INSOMNIA Last administered on 12/16/18at 22:46; Admin Dose 5 MG; Start 12/12/18 at 19:00 Enoxaparin Sodium (Lovenox) 40 mg DAILY SC Last administered on 12/17/18 08:04; Admin Dose 40 MG; Start 12/13/18 at 09:00 Lorazepam (Ativan) 1 mg Q8H PRN PO AGITATION/ANXIETY Last administered on 12/17/18 13:11; Admin Dose 1 MG; Start 12/12/18 at 19:00 Bupropion HCl (Wellbutrin) 100 mg DAILY PO Last administered on 12/17/18at 08:02; Admin Dose 100 MG; Start 12/13/18 at 11:30 Clindamycin HCl/ Dextrose 50 ml @ 50 mls/hr Q8 IVPB Last administered on 12/17/18at 13:11; Admin Dose 50 MLS/HR; Start 12/13/18 at 18:30 Lactobacillus Acidophilus/ Rhamnosus (Culturelle) 1 cap BID PO Last administered on 12/17/18at 08:02; Admin Dose 1 CAP; Start 12/13/18 at 21:00 Mupirocin (Bactroban) 1 applic BID TOP Last administered on 12/17/18at 08:03; Admin Dose 1 APPLIC; Start 12/15/18 at 21:00 Famotidine (Pepcid) 20 mg DAILY PO ; Start 12/18/18 at 09:00 Nicotine (Nicoderm 21 Mg/ 24hr) 1 patch DAILY TRANSDERM ; Start 12/17/18 at 10:00 MANJIT TIWARI NP Dec 17, 2018 17:32
[2018-12-17 19:51] VITALS: BP 105/50; PULSE 80; RESP 18
[2018-12-18] MEDS: OXYCODONE/ACETAMINOPHEN (5/325) TAB PO PRN (01:13)
[2018-12-18 01:26] VITALS: BP 110/55; PULSE 77; RESP 16
[2018-12-18] MEDS: CLINDAMYCIN 900 MG/D5W (PMX) 50 ML IVPB SCH ×3 (05:13→21:43)
--- NOTE | 2018-12-18 07:25 | QN ---
Documentation Comment CT findings of left upper extremity noted Patient still symptomatic with pain Normal hand function I removed the packing from the incision and drainage site. There is healthy residual granulation Plan: Wet dressing. Arm elevation. Consider orthopedic evaluation, as CT suggests deep tissue involvement JESE MOELLER MD Dec 18, 2018 07:25
[2018-12-18 08:01] VITALS: BP 114/62; PULSE 82; RESP 16
[2018-12-18] MEDS: BUPROPION 100 MG TAB PO SCH (08:37)
[2018-12-18] MEDS: LACTOBACILLUS RHAMNOSUS CAP PO SCH ×2 (08:37→21:43)
[2018-12-18] MEDS: FAMOTIDINE 20 MG TAB PO SCH (08:37)
[2018-12-18] MEDS: ENOXAPARIN 40 MG/0.4 ML SYG SC SCH (08:38)
[2018-12-18] MEDS: NICOTINE (21 MG/24 HR) PATCH TRANSDERM SCH (08:39)
[2018-12-18] MEDS: MUPIROCIN 2% 22 GM OINT TOP SCH ×2 (08:39→21:44)
[2018-12-18 14:31] VITALS: BP 102/52; PULSE 85; RESP 16
[2018-12-18] MEDS: LORAZEPAM 1 MG TAB PO PRN (15:30)
--- NOTE | 2018-12-18 15:38 | PN ---
Date/Time of Note Date/Time of Note DATE: 12/18/18 TIME: 15:37 Assessment/Plan VTE Prophylaxis Risk score (from Nsg)>0 risk: 1 SCD applied (from Nsg): Yes Pharmacological prophylaxis: LMWH Lines/Catheters IV Catheter Type (from Nrsg): Saline Lock Urinary Cath still in place: No Assessment/Plan Hospital Course SUBJECTIVE: Right upper extremity pain well controlled. OBJECTIVE: Physical Exam General: Adequately build 28 year-old male lying in bed in no apparent distress. HEENT: Normocephalic, atraumatic. Eyes: Anicteric sclerae, conjunctivae clear. ENT: Nasal septum midline, oral mucosa moist. Neck supple, no JVD noticed. Respiratory: Bilaterally clear breath sounds. No use of accessory muscles of respiration. No adventitious breath sounds. Cardiovascular: S1, S2 heard. Abdomen: Soft, nontender, and nondistended. Bowel sounds positive in all 4 quadrants. Genitourinary: Deferred. Extremities: No cyanosis, no clubbing. Right upper extremity edema with a dressing at the AC. Peripheral pulses palpable. Neurologic: Cranial nerves II through XII grossly intact. The patient is awake, alert, and oriented. Labs & Vitals per chart ASSESSMENT & PLAN 28-year-old male who is homeless with underlying IV drug abuse who came to the emergency room with complaint of swelling in the right upper extremity. The patient was noticed to have leukocytosis and febrile illness. The patient was admitted to inpatient setting for further treatment and evaluation. 1. Right upper extremity cellulitis secondary to IV drug abuse. -Right upper extremity CT scan showing no fluid collection or soft tissue gas and no CT evidence of osseous destructive changes -Being followed by surgery and ID. -Continue antimicrobials as per ID. 2. IV drug abuse. -Cessation advised. -jet worker on the case. 3. Homelessness. -jet worker following. 4. Transaminitis without hyperbilirubinemia. -HCV positive. -Needs eventual treatment. 5. MRSA of the nares. -Continue Bactroban. 6. Fluids, electrolytes, and nutrition. -Regular diet. -7. Major depressive disorder -Continue antidepressants. 8. DVT prophylaxis. -Subcutaneous Lovenox. 8. Plan. -Continue antimicrobials as per ID. -Await further surgical recommendations. The patient was seen in collaboration with Dr. Teixeira. Result Diagram: 12/18/1843 2/19/19 0643 Results 24hrs Laboratory Tests Test 12/18/18 06:43 12/18/18 11:48 White Blood Count 11.5 H Red Blood Count 4.86 Hemoglobin 12.7 L Hematocrit 40.0 L Mean Corpuscular Volume 82.3 Mean Corpuscular Hemoglobin 26.1 L Mean Corpuscular Hemoglobin Concent 31.8 L Red Cell Distribution Width 15.3 H Platelet Count 566 H Mean Platelet Volume 8.4 Immature Granulocytes % 2.800 H Neutrophils % 46.7 Segmented Neutrophils % (Manual) 38 L Band Neutrophils % (Manual) 1 Lymphocytes % 38.0 Lymphocytes % (Manual) 29 Reactive Lymphocytes % (Manual) 17 H Monocytes % 7.1 Monocytes % (Manual) 9 Eosinophils % 4.1 Eosinophils % (Manual) 5 Basophils % 1.3 Plasma Cells % (manual) 1 Nucleated Red Blood Cells % 0.0 Immature Granulocytes # 0.320 H Neutrophils # 5.4 Neutrophils # (Manual) 4.4 Band Neutrophils # 0.1 Lymphocytes (Manual) 3.3 H Lymphocytes # 4.4 H Reactive Lymphocytes # 1.9 H Monocytes # 0.8 Monocytes # (Manual) 1.0 H Eosinophils # 0.5 Basophils # 0.2 H Plasma Cells # (manual) 0.1 H Nucleated Red Blood Cells # 0.0 Platelet Estimate NORMAL Giant Platelets 1 H Poikilocytosis 1+ Anisocytosis 1+ Macrocytosis 1+ Ovalocytes 1+ Sodium Level 141 Potassium Level 4.0 Chloride Level 100 Carbon Dioxide Level 30 Anion Gap 11 Blood Urea Nitrogen 16 Creatinine 0.78 Est Glomerular Filtrat Rate mL/min > 60 Glucose Level 129 Calcium Level 9.1 Phosphorus Level 4.8 Magnesium Level 1.9 Lab Scanned Report REFERENCE LAB Exam/Review of Systems Exam Vitals Vital Signs Date Temp Pulse Resp B/P (MAP) Pulse Ox O2 O2 Flow FiO2 Time Delivery Rate 12/18/18 98.2 85 16 102/52 97 Room Air 14:31 (69) Intake and Output 12/17/18 12/17/18 12/18/18 1515:00 23:00 07:00 IntakeIntake Total 700 ml 440 ml 910 ml BalanceBalance 700 ml 440 ml 910 ml Results Results 24hrs Laboratory Tests Test 12/18/18 06:43 12/18/18 11:48 White Blood Count 11.5 H Red Blood Count 4.86 Hemoglobin 12.7 L Hematocrit 40.0 L Mean Corpuscular Volume 82.3 Mean Corpuscular Hemoglobin 26.1 L Mean Corpuscular Hemoglobin Concent 31.8 L Red Cell Distribution Width 15.3 H Platelet Count 566 H Mean Platelet Volume 8.4 Immature Granulocytes % 2.800 H Neutrophils % 46.7 Segmented Neutrophils % (Manual) 38 L Band Neutrophils % (Manual) 1 Lymphocytes % 38.0 Lymphocytes % (Manual) 29 Reactive Lymphocytes % (Manual) 17 H Monocytes % 7.1 Monocytes % (Manual) 9 Eosinophils % 4.1 Eosinophils % (Manual) 5 Basophils % 1.3 Plasma Cells % (manual) 1 Nucleated Red Blood Cells % 0.0 Immature Granulocytes # 0.320 H Neutrophils # 5.4 Neutrophils # (Manual) 4.4 Band Neutrophils # 0.1 Lymphocytes (Manual) 3.3 H Lymphocytes # 4.4 H Reactive Lymphocytes # 1.9 H Monocytes # 0.8 Monocytes # (Manual) 1.0 H Eosinophils # 0.5 Basophils # 0.2 H Plasma Cells # (manual) 0.1 H Nucleated Red Blood Cells # 0.0 Platelet Estimate NORMAL Giant Platelets 1 H Poikilocytosis 1+ Anisocytosis 1+ Macrocytosis 1+ Ovalocytes 1+ Sodium Level 141 Potassium Level 4.0 Chloride Level 100 Carbon Dioxide Level 30 Anion Gap 11 Blood Urea Nitrogen 16 Creatinine 0.78 Est Glomerular Filtrat Rate mL/min > 60 Glucose Level 129 Calcium Level 9.1 Phosphorus Level 4.8 Magnesium Level 1.9 Lab Scanned Report REFERENCE LAB Medications Medication Current Medications IV Flush (NS 3 ml) 3 ml PER PROTOCOL IV ; Start 12/12/18 at 19:00 Ondansetron HCl (Zofran Inj) 4 mg Q6H PRN IV NAUSEA/VOMITING; Start 12/12/18 at 19:00 Acetaminophen (Tylenol Tab) 650 mg Q6H PRN PO .PAIN 1-3 OR TEMP; Start 12/12/18 at 19:00 Oxycodone/ Acetaminophen (Percocet (5/ 325)) 1 tab Q6H PRN PO .MOD PAIN 4-6 Last administered on 12/18/18at 01:13; Admin Dose 1 TAB; Start 12/12/18 at 19:00 Morphine Sulfate (morphine) 2 mg Q4H PRN IV .SEVERE PAIN 7-10; Start 12/12/18 at 19:00 Docusate Sodium (Colace) 100 mg Q12H PRN PO .CONSTIPATION; Start 12/12/18 at 19:00 Magnesium Hydroxide (Milk Of Mag) 30 ml DAILY PRN PO .CONSTIPATION; Start 12/12/18 at 19:00 Bisacodyl (Dulcolax) 5 mg DAILY PRN PO .CONSTIPATION; Start 12/12/18 at 19:00 Zolpidem Tartrate (Ambien) 5 mg QHS PRN PO .INSOMNIA Last administered on 12/16/18 22:46; Admin Dose 5 MG; Start 12/12/18 at 19:00 Enoxaparin Sodium (Lovenox) 40 mg DAILY SC Last administered on 12/18/18 08:38; Admin Dose 40 MG; Start 12/13/18 at 09:00 Lorazepam (Ativan) 1 mg Q8H PRN PO AGITATION/ANXIETY Last administered on 12/18/18 15:30; Admin Dose 1 MG; Start 12/12/18 at 19:00 Bupropion HCl (Wellbutrin) 100 mg DAILY PO Last administered on 12/18/18 08:37; Admin Dose 100 MG; Start 12/13/18 at 11:30 Clindamycin HCl/ Dextrose 50 ml @ 50 mls/hr Q8 IVPB Last administered on 12/18/18 13:04; Admin Dose 50 MLS/HR; Start 12/13/18 at 18:30 Lactobacillus Acidophilus/ Rhamnosus (Culturelle) 1 cap BID PO Last administered on 12/18/18 08:37; Admin Dose 1 CAP; Start 12/13/18 at 21:00 Mupirocin (Bactroban) 1 applic BID TOP Last administered on 12/18/18 08:39; Admin Dose 1 APPLIC; Start 12/15/18 at 21:00 Famotidine (Pepcid) 20 mg DAILY PO Last administered on 12/18/18 08:37; Admin Dose 20 MG; Start 12/18/18 at 09:00 Nicotine (Nicoderm 21 Mg/ 24hr) 1 patch DAILY TRANSDERM ; Start 12/17/18 at 10:00 MANJIT TIWARI NP Dec 18, 2018 15:38
[2018-12-18] MEDS ORDERED: morphine LIQ (10 MG/5 ML) CUP PO PRN (18:00)
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
[2018-12-18 20:22] VITALS: BP 124/68; PULSE 78; RESP 19
[2018-12-18] MEDS: ZOLPIDEM 5 MG TAB PO PRN (21:43)
[2018-12-19 02:05] VITALS: BP 116/67; PULSE 81; RESP 17
[2018-12-19] MEDS: CLINDAMYCIN 900 MG/D5W (PMX) 50 ML IVPB SCH ×3 (05:18→21:07)
[2018-12-19] MEDS: LORAZEPAM 1 MG TAB PO PRN ×2 (07:27→15:30)
[2018-12-19 07:50] VITALS: BP 101/55; PULSE 86; RESP 18
[2018-12-19] MEDS: MUPIROCIN 2% 22 GM OINT TOP SCH ×2 (08:39→20:26)
[2018-12-19] MEDS: ENOXAPARIN 40 MG/0.4 ML SYG SC SCH (08:39)
[2018-12-19] MEDS: LACTOBACILLUS RHAMNOSUS CAP PO SCH ×2 (08:39→20:26)
[2018-12-19] MEDS: BUPROPION 100 MG TAB PO SCH (08:40)
[2018-12-19] MEDS: FAMOTIDINE 20 MG TAB PO SCH (08:40)
[2018-12-19] MEDS: NICOTINE (21 MG/24 HR) PATCH TRANSDERM SCH ×2 (08:40→09:00)
--- NOTE | 2018-12-19 13:45 | PN ---
Date/Time of Note Date/Time of Note DATE: 12/19/18 TIME: 13:44 Assessment/Plan VTE Prophylaxis Risk score (from Nsg)>0 risk: 0 SCD applied (from Ns): No SCD contraindicated: other Pharmacological prophylaxis: LMWH Lines/Catheters IV Catheter Type (from Nrs): Saline Lock Urinary Cath still in place: No Assessment/Plan Hospital Course SUBJECTIVE: Right upper extremity pain well controlled. OBJECTIVE: Physical Exam General: Adequately build 28 year-old male lying in bed in no apparent distress. HEENT: Normocephalic, atraumatic. Eyes: Anicteric sclerae, conjunctivae clear. ENT: Nasal septum midline, oral mucosa moist. Neck supple, no JVD noticed. Respiratory: Bilaterally clear breath sounds. No use of accessory muscles of respiration. No adventitious breath sounds. Cardiovascular: S1, S2 heard. Abdomen: Soft, nontender, and nondistended. Bowel sounds positive in all 4 quadrants. Genitourinary: Deferred. Extremities: No cyanosis, no clubbing. Right upper extremity edema with a dressing at the AC. Peripheral pulses palpable. Neurologic: Cranial nerves II through XII grossly intact. The patient is awake, alert, and oriented. Labs & Vitals per chart ASSESSMENT & PLAN 28-year-old male who is homeless with underlying IV drug abuse who came to the emergency room with complaint of swelling in the right upper extremity. The patient was noticed to have leukocytosis and febrile illness. The patient was admitted to inpatient setting for further treatment and evaluation. 1. Right upper extremity cellulitis secondary to IV drug abuse. -Right upper extremity CT scan showing no fluid collection or soft tissue gas and no CT evidence of osseous destructive changes -Being followed by surgery and ID. -Continue antimicrobials as per ID. 2. IV drug abuse. -Cessation advised. -distillery worker general on the case. 3. Homelessness. -distillery worker general following. 4. Transaminitis without hyperbilirubinemia. -HCV positive. -Needs eventual treatment. 5. MRSA of the nares. -Continue Bactroban. 6. Fluids, electrolytes, and nutrition. -Regular diet. -7. Major depressive disorder -Continue antidepressants. 8. DVT prophylaxis. -Subcutaneous Lovenox. 8. Plan. -Continue antimicrobials as per ID. -General surgery recommending orthopedic surgery evaluation. Will obtain orthopedic surgery evaluation. The patient was seen in collaboration with Dr. Teixeira. Result Diagram: 2/19/19 0643 12/18/1843 Exam/Review of Systems Exam Vitals Vital Signs Date Temp Pulse Resp B/P (MAP) Pulse Ox O2 O2 Flow FiO2 Time Delivery Rate 12/19/18 97.5 86 18 101/55 98 Room Air 07:50 (70) Intake and Output 12/18/18 12/18/18 12/19/18 1414:59 22:59 06:59 IntakeIntake Total 50 ml 650 ml 600 ml BalanceBalance 50 ml 650 ml 600 ml Medications Medication Current Medications IV Flush (NS 3 ml) 3 ml PER PROTOCOL IV ; Start 12/12/18 at 19:00 Ondansetron HCl (Zofran Inj) 4 mg Q6H PRN IV NAUSEA/VOMITING; Start 12/12/18 at 19:00 Acetaminophen (Tylenol Tab) 650 mg Q6H PRN PO .PAIN 1-3 OR TEMP; Start 12/12/18 at 19:00 Oxycodone/ Acetaminophen (Percocet (5/ 325)) 1 tab Q6H PRN PO .MOD PAIN 4-6 Last administered on 12/18/18at 01:13; Admin Dose 1 TAB; Start 12/12/18 at 19:00 Docusate Sodium (Colace) 100 mg Q12H PRN PO .CONSTIPATION; Start 12/12/18 at 19:00 Magnesium Hydroxide (Milk Of Mag) 30 ml DAILY PRN PO .CONSTIPATION; Start 12/12/18 at 19:00 Bisacodyl (Dulcolax) 5 mg DAILY PRN PO .CONSTIPATION; Start 12/12/18 at 19:00 Zolpidem Tartrate (Ambien) 5 mg QHS PRN PO .INSOMNIA Last administered on 12/18/18at 21:43; Admin Dose 5 MG; Start 12/12/18 at 19:00 Enoxaparin Sodium (Lovenox) 40 mg DAILY SC Last administered on 12/19/18at 08:39; Admin Dose 40 MG; Start 12/13/18 at 09:00 Lorazepam (Ativan) 1 mg Q8H PRN PO AGITATION/ANXIETY Last administered on at 07:27; Admin Dose 1 MG; Start 12/12/18 at 19:00 Bupropion HCl (Wellbutrin) 100 mg DAILY PO Last administered on 12/19/18 08:40; Admin Dose 100 MG; Start 12/13/18 at 11:30 Clindamycin HCl/ Dextrose 50 ml @ 50 mls/hr Q8 IVPB Last administered on 12/19/18at 13:04; Admin Dose 50 MLS/HR; Start 12/13/18 at 18:30 Lactobacillus Acidophilus/ Rhamnosus (Culturelle) 1 cap BID PO Last administered on 12/19/18 08:39; Admin Dose 1 CAP; Start 12/13/18 at 21:00 Mupirocin (Bactroban) 1 applic BID TOP Last administered on 12/19/18 08:39; Admin Dose 1 APPLIC; Start 12/15/18 at 21:00 Famotidine (Pepcid) 20 mg DAILY PO Last administered on 12/19/18 08:40; Admin Dose 20 MG; Start 12/18/18 at 09:00 Nicotine (Nicoderm 21 Mg/ 24hr) 1 patch DAILY TRANSDERM ; Start 12/17/18 at 10:00 Morphine Sulfate (morphine) 6 mg Q4H PRN PO SEVERE PAIN LEVEL 7-10; Start 12/18/18 at 18:00 MANJIT TIWARI NP Dec 19, 2018 13:45
[2018-12-19 14:20] VITALS: BP 112/50; PULSE 89; RESP 16
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
[2018-12-19] MEDS: OXYCODONE/ACETAMINOPHEN (5/325) TAB PO PRN (16:32)
[2018-12-19 19:53] VITALS: BP 118/50; PULSE 86; RESP 20
[2018-12-19] MEDS: ZOLPIDEM 5 MG TAB PO PRN (20:26)
[2018-12-20 01:42] VITALS: BP 112/60; PULSE 81; RESP 20
[2018-12-20] MEDS: CLINDAMYCIN 900 MG/D5W (PMX) 50 ML IVPB SCH (06:02)
--- NOTE | 2018-12-20 07:49 | QN ---
Documentation Comment No significant change Patient is stable Repeat cultures are pending As there are no further general surgical recommendations, will sign off and see again prn your request Orthopedic evaluation is recommended JESE MOELLER MD Dec 20, 2018 07:49
[2018-12-20 08:00] VITALS: BP 98/56; PULSE 74; RESP 18
[2018-12-20] MEDS: MUPIROCIN 2% 22 GM OINT TOP SCH (08:46)
[2018-12-20] MEDS: FAMOTIDINE 20 MG TAB PO SCH (08:47)
[2018-12-20] MEDS: BUPROPION 100 MG TAB PO SCH (08:47)
[2018-12-20] MEDS: LACTOBACILLUS RHAMNOSUS CAP PO SCH (08:47)
[2018-12-20] MEDS: NICOTINE (21 MG/24 HR) PATCH TRANSDERM SCH (08:47)
[2018-12-20] MEDS: ENOXAPARIN 40 MG/0.4 ML SYG SC SCH (08:48)
--- NOTE | 2018-12-20 09:14 | DS ---
Date/Time of Note Date/Time of Note DATE: 12/20/18 TIME: 09:14 Discharge Summary Admission/Discharge Info Admit Date/Time Dec 12, 2018 at 17:37 Discharge Date/Time Left AGAINST MEDICAL ADVICE Discharge Diagnosis 1. Right upper extremity cellulitis secondary to IV drug abuse. 2. IV drug abuse. 3. Homelessness. 4. Transaminitis without hyperbilirubinemia. 5. HCV positive. 6. MRSA of the nares. 7. Major depressive disorder. Patient Condition: Guarded Consults 1. Odell Price MD, General Surgery. 2. Navdeep Gale MD, Infectious Diseases. Procedures CT of the Right Upper Extremity without Contrast IMPRESSION: Diffuse soft tissue edema involving the volar surface of the forearm with more circumferential edema in the distal forearm. Soft tissue edema extending into the superficial and deep muscle fascial planes. Focal ulceration in the volar soft tissues of the proximal forearm, which can be correlated with visual examination. No fluid collection or soft tissue gas identified. No CT evidence of osseous destructive changes. Hx of Present Illness This is a 28-year-old male who is homeless with underlying IV drug abuse who came to the emergency room with complaint of swelling in the right upper extremity. The patient was noticed to have leukocytosis and febrile illness. The patient was admitted to inpatient setting for further treatment and evaluation. Hospital Course The patient was admitted to inpatient setting. The patient was started on antimicrobials. An ID consult and general surgery consult was obtained. The patient underwent a right upper extremity CT scan that was showing diffuse soft tissue edema involving the volar surface of the forearm with more circumferential edema in the distal forearm with soft tissue edema extending into the superficial and deep muscle fascial planes. The patient was maintained on antimicrobials with improvement in the symptoms. Meanwhile, orthopedic surgery was contacted on 12/20/2018 for further evaluation as per the recommendations of general surgeon. However, before the orthopedic surgeon could see the patient, he left the hospital AGAINST MEDICAL ADVICE. The patient is an IV drug user. The patient was advised on cessation. lithographic general worker was following the patient. The patient was noticed to have transaminitis without hyperbilirubinemia. The patient had hepatitis C positive antibody with HCV RNA of 24,200. The patient eventually needs hepatitis C treatment. The patient was also noticed to have MRSA of the nares. The patient was maintained on Bactroban. The patient has underlying major depressive disorder. The patient was evaluated by psychiatry and the patient was maintained on antidepressants. On 12/20/2018, the patient wanted to leave the hospital. The patient was informed about the consequences of leaving the hospital AGAINST MEDICAL ADVICE including the possibility of . Nevertheless, the patient left the hospital AGAINST MEDICAL ADVICE. No discharge instructions could be provided and no follow-up plan could be confirmed since the patient left the hospital AGAINST MEDICAL ADVICE. At this time I would like to thank all the consultants for seeing the patient and providing clinical recommendations. The patient was seen in collaboration with Dr. Teixeira. Home Meds No Active Prescriptions or Reported Meds Follow-up Plan No follow-up plan could be confirmed since the patient left the hospital AGAINST MEDICAL ADVICE. Primary Care Provider Care Physician No Primary Time spent on discharge: < 30 minutes MANJIT TIWARI NP Dec 20, 2018 09:14
== END 2018-12-20 09:05 | disposition left against medical advice (07) | DRG 603 ==
LOC: FTE 13:39 → PP2 17:37 → 5EC 12-13 13:30
PROVIDERS: ADMIT Internal Medicine; ATTEND Internal Medicine
PROC: 0X960ZZ Drainage of Right Upper Extremity, Open Approach (ICD-10-PCS; principal; 2018-12-12)
DX: L03.113 Cellulitis of right upper limb (principal); F33.2 Major depressive disorder, recurrent severe without psychotic features; B17.10 Acute hepatitis C without hepatic coma; F15.90 Other stimulant use, unspecified, uncomplicated; F19.90 Other psychoactive substance use, unspecified, uncomplicated; F17.210 Nicotine dependence, cigarettes, uncomplicated; L02.413 Cutaneous abscess of right upper limb; R62.7 Adult failure to thrive; Z59.0 Homelessness; Z68.22 Body mass index [BMI] 22.0-22.9, adult; Z53.21 Procedure and treatment not carried out due to patient leaving prior to being seen by health care provider
CPT/HCPCS: 36415; 73200; 80048; 80053; 80307; 83036; 83605; 83735; 84100; 84443; 85025; 85610; 85730; 86704; 86709; 86803; 87040; 87070; 87081; 87340; 96361; 96374; 96375; J1650; J1885; J2270; J2405; J7030